=== PATIENT | female | born 1985 | race Caucasian/White ===

== ENCOUNTER → 2019-02-19 | Emergency (ER) | payer MEDICAID ==
[~2019-02-19] VITALS: Ht 172.7 cm; Wt 127.3 kg
[2019-02-19 18:34] VITALS: BP 141/88; PULSE 92; TEMP 97.1
[2019-02-19 19:15] LABS: COLLECTION METHOD CLEAN CATCH
[2019-02-20 02:08] LABS: MUCOUS Present /lpf; PH 6 (5-8); URINE APPEARANCE Hazy; URINE BACTERIA Moderate /hpf; URINE BILIRUBIN Negative (NEGATIVE); URINE BLOOD 1+ (NEGATIVE); URINE COLOR Yellow; URINE GLUCOSE Negative (NEGATIVE); URINE KETONE Negative (NEGATIVE); URINE LEUKOCYTE ESTERASE Negative (NEGATIVE); URINE NITRATE Negative (NEGATIVE); URINE PROTEIN(semi-quant) Negative (NEGATIVE); URINE UROBILINOGEN Negative (NEGATIVE)
[2019-02-20 02:43] LABS: ALBUMIN 3.3 gm/dL (3.5-5.0); BILIRUBIN,TOTAL 0.5 mg/dL (0.0-1.0); C-REACTIVE PROTEIN 1.5 mg/dL (0.0-0.9); CALCIUM 9.3 mg/dL (8.4-10.2); CREATININE, serum 0.49 (0.52-1.25); POTASSIUM 4.1 mmol/L (3.4-5.0); TOTAL PROTEIN 6.5 gm/dL (6.4-8.2)
[2019-02-20 02:44] LABS: HEMATOCRIT 33.4 % (37.0-47.0); HEMOGLOBIN 10.9 g/dl (12.5-16.0); MEAN CELL VOLUME 88 fl (80.0-100.0); MEAN CORPUSCULAR HEMOGLOBIN 29 pg (27.0-31.0); MEAN CORPUSCULAR HGB CONC 33 g/dl (33.0-37.0); MEAN PLATELET VOLUME 10.8 fl (7.4-10.4); PLATELET COUNT 170 K/mm3 (130-400); RED BLOOD COUNT 3.79 M/mm3 (4.10-5.30); REDCELL DISTRIBUTION WIDTH-CV 16.5 % (11.5-14.5)
[2019-02-20 02:52] LABS: BASO % 0.2 % (0.0-2.0); EOS # 0.1 (0.0-0.7); EOS % 1.4 % (0-4.0); GRAN % 74.3 % (42.2-75.2); LYMPH # 1.3 (1.2-3.4); MONO # 0.6 (0.1-0.6); MONO % 7.5 % (1.7-9.3)
== END ==
LOC: COL.ER 18:14
PROVIDERS: Emergency Medicine
DX: O21.2 Late vomiting of pregnancy (principal); O26.893 Other specified pregnancy related conditions, third trimester; R19.7 Diarrhea, unspecified; Z3A.33 33 weeks gestation of pregnancy
CPT/HCPCS: J2550; J7030

== ENCOUNTER 2019-03-04 11:44 | Inpatient (IN) | payer MEDICAID ==
[~2019-03-04] VITALS: Ht 172.8 cm; Wt 130.0 kg
[2019-03-04] VITALS (27 sets, daily range): BP systolic 117–157; BP diastolic 41–90; PULSE 80–103; TEMP 97.6–98.7
--- NOTE | 2019-03-04 11:45 | NUR ---
Pt sent here from the [facility] for R/O preeclampsia. 36.6 weeks gestation twin . G5L3. Pt to [facility], explained. Consent signed. Assessment complete. Pt with +1 pitting edema to lower and upper extremities. Pt states babies are active, denies any vaginal bleeding, leaking of fluid or contractions. Baby A vertex and to right upper abdomen. Baby B transfer and to left upper abdomen. IV attempted x 2 then started to right hand on 3rd attempt. Blood drawn from IV site and then flushed without difficulty. Baby A FHR 145bpm, reactive. Baby B FHR 140bpm, reactive. No contractions palpated. Inital BP 145/82.
[2019-03-04] MEDS ORDERED: PRENATAL PO (12:09)
[2019-03-04] MEDS ORDERED: ZOLOFT 50MG50 MG PO (12:09)
[2019-03-04 12:29] LABS: COLLECTION METHOD CLEAN CATCH
[2019-03-04 12:33] LABS: BASO % 0.2 % (0.0-2.0); EOS # 0.1 (0.0-0.7); GRAN # 7.6 (1.4-6.5); GRAN % 79.5 % (42.2-75.2); HEMATOCRIT 34.4 % (37.0-47.0); HEMOGLOBIN 11.2 g/dl (12.5-16.0); LYMPH # 1.1 (1.2-3.4); LYMPH % 11.3 % (20.0-51.0); MEAN CELL VOLUME 88 fl (80.0-100.0); MEAN CORPUSCULAR HEMOGLOBIN 29 pg (27.0-31.0); MEAN CORPUSCULAR HGB CONC 33 g/dl (33.0-37.0); MEAN PLATELET VOLUME 10.9 fl (7.4-10.4); MONO # 0.7 (0.1-0.6); PLATELET COUNT 175 K/mm3 (130-400); RED BLOOD COUNT 3.89 M/mm3 (4.10-5.30); REDCELL DISTRIBUTION WIDTH-CV 17.2 % (11.5-14.5)
[2019-03-04 12:41] LABS: MUCOUS Present /lpf; PH 6 (5-8); URINE APPEARANCE Hazy; URINE BACTERIA Moderate /hpf; URINE BILIRUBIN Negative (NEGATIVE); URINE BLOOD 2+ (NEGATIVE); URINE COLOR Yellow; URINE GLUCOSE Negative (NEGATIVE); URINE KETONE Negative (NEGATIVE); URINE LEUKOCYTE ESTERASE 1+ (NEGATIVE); URINE NITRATE Negative (NEGATIVE); URINE PROTEIN(semi-quant) 1+ (NEGATIVE); URINE UROBILINOGEN Negative (NEGATIVE)
[2019-03-04 12:43] LABS: ALBUMIN 3.3 gm/dL (3.5-5.0); BILIRUBIN,TOTAL 0.3 mg/dL (0.0-1.0); CALCIUM 8.7 mg/dL (8.4-10.2); CREATININE, serum 0.53 (0.52-1.25); POTASSIUM 4.2 mmol/L (3.4-5.0); TOTAL PROTEIN 6.4 gm/dL (6.4-8.2)
--- NOTE | 2019-03-04 13:30 | NUR ---
IV to right hand flushed and pt requests to start a new one d/t pain. IV started to left hand, infusing LR without difficulty and states it feels "much better." Dr Ragland called and will plan to do C/Section around 1630. If FHR's are reactive, may take off EFM.
--- NOTE | 2019-03-04 14:00 | NUR ---
Pt states having a hx of drug abuse 4 years and was incarcerated from [id number]. Order received for UDS and will notify nursery nurse.
--- NOTE | 2019-03-04 16:45 | NUR ---
Pt transferred to room 209 via bed. Pt alert. Fundus has been firm with intermittent small grape size clots expressed with fundal massage. Pericare done and new pads in place. Vital signs stable. FOB at bedside.
[2019-03-04 17:03] LABS: TRICYCLIC ANTIDEPRESS URINE NEGATIVE
--- NOTE | 2019-03-04 22:30 | NUR ---
Attempt to get pt up to bathroom. Pt moves self to sit on edge of bed, with much encouragement. Pt stating "I can't believe how much this hurts". After several attempts, pt stands at bedside while abd binder applied and pads on bed changed. gets back into bed with encoragement.
[2019-03-05 03:00] VITALS: BP 150/81; PULSE 74; TEMP 98.5
[2019-03-05 06:44] LABS: HEMATOCRIT 29.9 % (37.0-47.0); HEMOGLOBIN 9.7 g/dl (12.5-16.0)
[2019-03-05 07:15] VITALS: BP 125/60; PULSE 87; TEMP 98
--- NOTE | 2019-03-05 09:08 | NUR ---
Initial visit; Family thanked Ship Manager for offering congratulations and God's blessings for the of their son. Ship Manager thanked them for choosing [facility].
[2019-03-05 11:15] VITALS: BP 125/71; PULSE 89; TEMP 98.1
--- NOTE | 2019-03-05 15:16 | NUR ---
vegetable worker met with patient and spouse to assess needs as patient has a history of meth usage with incarceration. Patient stated that the drug usage was "a long time ago". Patient denies any drug issue at this time. Patient and spouse appeared very comfortable with their babies and stated they have 7 children combined. Patient stated her 15 year old son lives with his grandmother, however, she drives him to school everyday. Patient states she will return to work on the weekends at [employer] in [place]. Spouse works weeks so they will trade off provided daycare. Patient and spouse deny unmet needs. Worker collaborated with nursing regarding the above information.
[2019-03-05 15:46] VITALS: BP 145/80; PULSE 80; TEMP 98.5
[2019-03-05 21:20] VITALS: BP 136/66; PULSE 95; TEMP 98
[2019-03-06] MEDS ORDERED: PERCOCET 325 MG1 TA2 PO (08:40)
[2019-03-06] MEDS ORDERED: IBU600 MG PO (08:40)
[2019-03-06 09:35] VITALS: BP 143/68; PULSE 97; TEMP 98.4
--- NOTE | 2019-03-09 08:39 | NUR ---
Patient's infant's cord blood was negative for illegal drugs in system.
== END 2019-03-06 13:10 | disposition home or self-care (01) | DRG 788 ==
LOC: LDRO 11:44 → LDR 11:55 → LDRO 13:30 → OB 13:49 → LDR 13:49 → OB 18:00
PROVIDERS: ADMIT Obstetrics & Gynecology
PROC: 10D00Z1 Extraction of Products of Conception, Low, Open Approach (ICD-10-PCS; principal; 2019-03-04)
DX: O13.4 Gestational [pregnancy-induced] hypertension without significant proteinuria, complicating childbirth (principal); Z3A.36 36 weeks gestation of pregnancy; Z37.2 Twins, both liveborn; O99.214 Obesity complicating childbirth; O32.1XX1 Maternal care for breech presentation, fetus 1; O30.043 Twin pregnancy, dichorionic/diamniotic, third trimester; O99.52 Diseases of the respiratory system complicating childbirth; J45.909 Unspecified asthma, uncomplicated; O99.344 Other mental disorders complicating childbirth; F41.8 Other specified anxiety disorders
CPT/HCPCS: OP; J0171; J1885; J2175; J2270; J2370; J2405; J2590; J3010; J7120